=== PATIENT | male | born 1995 | race Caucasian/White ===

== ENCOUNTER 2021-01-18 10:05 | Emergency (ER) | payer OTHER, SELFPAY ==
[~2021-01-18] VITALS: Ht 172.7 cm; Wt 59.0 kg
[~2021-01-18 10:05] MED LIST: BACL20TA4
[2021-01-18 10:06] VITALS: BP 130/78
--- NOTE | 2021-01-18 10:15 | NUR ---
pt was in wheelchair to get into bed 9
--- NOTE | 2021-01-18 10:26 | NUR ---
Note undone in EDM - 01/18/21 at 1344 by [email or web address] 15 y.o male cerebral palsy came in for fever and cough. fever and cough for x3 days. parent reports phlegm taken Nyquil and effective. COVID vaccination received last month and 2nd shot for january 26. Taken temp 98.0 farenheit and pulse ox 98%. diminished lung nunez throughout. no s/s respiratory distress. PMH: cerebral palsy Allergies: NKA meds: baclofen, valium
--- NOTE | 2021-01-18 10:48 | NUR ---
xray at bedside
--- NOTE | 2021-01-18 11:39 | NUR ---
PCR covid oral swab collected and given to lab
--- NOTE | 2021-01-18 11:48 | NUR ---
transferred pt to bed from wheelchair with help of another RN
--- NOTE | 2021-01-18 11:52 | NUR ---
pt sent to ct
--- NOTE | 2021-01-18 12:02 | NUR ---
back from ct via raul
[2021-01-18] MEDS ORDERED: MIRABULK PO (13:08)
[2021-01-18] MEDS ORDERED: BENZ5NMA RC (13:08)
--- NOTE | 2021-01-18 13:32 | NUR ---
Patient discharged with v/s stable. Written and verbal after care instructions given and explained to parent. wheelchair and pushed by parent. All questions addressed prior to discharge. ID band removed. Patient advised to follow up with PMD. Rx of enemeez plus mini enema 20 mg-283 Mg 5 ML and miralax given. Parent educated on indication of medication including possible reaction and side effects. Opportunity to ask questions provided and answered.
== END 2021-01-18 13:32 | disposition home or self-care (01) ==
LOC: MED 10:05
DX: R50.9 Fever, unspecified (principal); Z20.822 Contact with and (suspected) exposure to COVID-19; R05 Cough; Z79.899 Other long term (current) drug therapy
CPT/HCPCS: 71045; 74176; 99285; U0003